=== PATIENT | male | born 1960 | race Caucasian/White ===

== ENCOUNTER 2024-08-15 15:51 | Emergency (ER) | payer OTHER, SELFPAY ==
[2024-08-15 16:00] VITALS: BP 141/100
[2024-08-15 16:30] LABS: Urine Albumin 3+ (Neg - Trace); Urine Bilirubin 1+ (Negative); Urine Character Clear (Clear); Urine Color Yellow; Urine Glucose 1+ (Negative); Urine Ketone 2+ (Negative); Urine Leukocyte 1+ (Negative); Urine Nitrite Negative (Negative); Urine Occult Blood 4+ (Negative); Urine Urobilinogen 1+ (Neg - 1+)
[2024-08-15 16:35] LABS: % Basophils 0.2 % (0-2); % Eosinophils 0.1 % (0-6); % Immature Granulocytes 0.5 % (0-0.5); % Lymphocytes 11.3 % (20.5-51.1); % Monocytes 18.4 % (1.7-9.3); % Neutrophils 69.5 % (42.2-75.2); Absolute Immature Granulocytes 0.1 10^3/uL (0-0.05); Absolute Lymphocytes 1.2 10^3/uL (1.2-3.4); Absolute Monocytes 1.9 10^3/uL (0.1-0.6); Absolute Neutrophils 7.2 10^3/uL (1.4-6.5); Hematocrit 49.1 % (39.0-52.0); Hemoglobin 16.4 g/dL (13.0-18.0); Mean Corp Hgb Conc. 33.4 g/dL (33.0-37.0); Mean Corpuscular Hgb 29.1 pg (27.0-31.0); Mean Corpuscular Volume 87.1 fL (80.0-94.0); Mean Platelet Volume 10.3 fL (7.4-10.4); Nucleated Red Blood Cells % 0 % (-); Platelet Count 193 10^3/uL (130-400); Red Blood Cell Count 5.64 10^6/uL (4.70-6.10); Red Cell Dist. Width 13.4 % (11.5-14.5); White Blood Cell Count 10.3 10^3/uL (4.8-10.8)
[2024-08-15 16:42] LABS: COVID-19 Antigen Negative (Negative)
[2024-08-15 16:43] LABS: ALT (SGPT) 40 U/L (0-50); AST (SGOT) 44 U/L (17-59); Albumin 4.2 g/dl (3.5-5.0); Alkaline Phosphatase 72 U/L (38-126); Blood Urea Nitrogen 21 mg/dl (9-20); Calcium 8.8 mg/dl (8.4-10.2); Carbon Dioxide 29 mmol/L (22-30); Chloride 99 mmol/L (98-107); Glucose 271 mg/dl (70-99); Potassium 3.5 mmol/L (3.5-5.1); Sodium 137 mmol/L (135-145); Total Protein 7.4 g/dl (6.3-8.2); Urine Mucus Moderate; Urine Squamous Cell 0-2 /LPF (Few); eGFR > 60.00
[2024-08-15 16:44] LABS: Urine Bacteria Many (Negative); Urine Red Blood Cell 50-60 /HPF (0-2)
--- NOTE | 2024-08-15 17:48 | ED.GENMED ---
History of Present Illness
General
Chief Complaint: Urinary Symptoms
Time Seen by Provider: 08/15/24 17:47
History of Present Illness
History of Present Illness:
REVIEW OF OLD RECORDS
- I reviewed records, the patient had a colonoscopy in 2022, the patient has a history of high blood pressure, hyperlipidemia, and IDDM. He was sent here by PMD.
CHIEF COMPLAINT(S)
Worsening flu-like symptoms over the last 48 hours, accompanied by blood in urine.
HISTORY OF PRESENT ILLNESS
The patient is a 63-year-old male presenting with one week of flu-like symptoms which have worsened over the past 48 hours. The symptoms include fatigue, body aches, chills, stuffy ears, and discomfort over the lymph node area. The fatigue became
more pronounced over the last few days. The patient reports noticing blood in the urine, but denies any abdominal or back pain and has no symptoms suggestive of a kidney stone. The patient also experienced nose tenderness on the right side. No
difficulty breathing was noted, and the throat was not sore.
The patients blood work currently looks reassuring, with no overwhelming signs of infection. A prostate examination was normal, with no significant tenderness indicated. Initial urine analysis showed higher blood presence without significant white
blood cell elevation. The patient has a known history of type one diabetes, with recent challenges in maintaining glucose control over the last 48 hours, likely secondary to this illness.
EXTERNAL RECORDS REVIEWED
Per the records reviewed, the patient has type one diabetes, and recent blood sugar levels were noted to be around 200. There was mention of a borderline flagged urinalysis.
CHRONIC MEDICAL CONDITIONS SIGNIFICANTLY AFFECTING CARE
Type one diabetes, encountering difficulty with glycemic control recently associated with the current illness.
SOCIAL HISTORY
The patient reports his spouse experienced a similar viral illness with symptoms of coughing and sneezing, which the patient may have contracted.
REVIEW OF SYSTEMS
- General: Fatigue, body aches, and chills.
- Head and Ears: Stuffy ears, tenderness on the right side of the nose, no throat soreness or difficulty breathing.
- Gastrointestinal and Renal: Blood noticed in urine, no abdominal or back pain.
- Endocrine: Type one diabetes, glucose control issues.
- Respiratory: No cough, no significant respiratory symptoms.
PHYSICAL EXAM
- Head and Neck: Slightly swollen lymph nodes on the right side/anterior cervical lymphadenopathy.
- Respiratory and Oral: No difficulty breathing, no pus visible in throat, slightly prominent uvula but widely patent oropharynx.
- General: Well appearing in no distress
- HEENT: Moist oral mucosa
- Cardiovascular: No murmurs, borderline tachycardic heart rate, regular rhythm, No chest wall tenderness
- Pulmonary: No respiratory distress, breath sounds are clear and equal
- Abdomen: Soft with no peritoneal signs, no tenderness, no CVA tenderness
- Neurologic: Excellent strength all extremities, no coordination deficits
- Psychiatric: Appropriate mental status, normal insight and judgement
- Extremities: Nontender, no edema, moves all extremities equally
- Skin: No rash, no lesions
PROBLEM LIST
Acute Problems:
- Flu-like symptoms with fatigue and body aches.
- Blood in urine without other urinary tract infection indicators.
Chronic Problems:
- Type one diabetes.
PLAN
1. Administer a dose of Ceftriaxone in the emergency department.
2. Perform blood cultures and lactic acid tests to rule out serious bacterial infection.
3. Refer the patient to a urologist for further evaluation of hematuria.
4. Patient encouraged to return if symptoms worsen.
DIFFERENTIAL DIAGNOSIS
The Differential Diagnosis includes, in no particular order and is not limited to:
1. Viral infection (e.g., influenza)
2. Urinary tract infection
3. Kidney stone
4. Glomerulonephritis
5. Prostatitis
6. Pyelonephritis
7. Type one diabetes complications
8. Upper respiratory tract infection
9. Viral lymphadenitis
10. Hematuria of unknown origin
RADIOLOGY
- No clear indication but I did consider CT of the abdomen pelvis given the hematuria however the patient has no abdominal pain nor any back pain
EKG
- Not indicated
LABS
- White count and hemoglobin are normal, chemistries unremarkable however the glucose was 271, bicarb is 29, urinalysis shows 50-60 red cells but only 6-10 white cells per high-powered field, 1+ leukocyte esterase in the urine appeared clear and
yellow, COVID-negative, lactic acid normal
UPDATE
-08/15/24 - 19:26
Patients lactic acid level is normal, indicating no severe systemic infection such as sepsis. Patient reported feeling better after receiving IV fluids, potentially due to dehydration from lack of intake during a prolonged sleep period of 24 hours.
Considering the patients diabetes and the possibility of a urinary tract infection, initiation of Keflex (cephalexin) is proposed. A referral to a urologist is recommended. Patient is stable for discharge, with instructions to return if symptoms
worsen.
Phy Exam
Physical Exam
Physical Exam:
See HPI
Course
Orders/Labs/Results
Orders:
Orders
08/15/24 16:11
COVID-19 Antigen Urgent
Source: Nasal Swab
Complete Blood Count/With Diff Urgent
Comprehensive Metabolic Panel Urgent
Urinalysis Reflex To Culture Urgent
Date Specimen was Collected: 08/15/24
Time Specimen was Collected: 16:03
Urine Microscopic Reflex Cult Urgent
Influenza A+B Rapid Molecular Urgent
[facility] Source: Nasal Swab
Specimen Description:
Date Specimen was Collected: 08/15/24
Time Specimen was Collected: 16:03
Urine Culture Urgent
[facility] Source: U
Specimen Description:
Date Specimen was Collected: 08/15/24
Time Specimen was Collected: 16:03
08/15/24 18:03
0.9% Sodium Chloride 1000 ml [Nss] 1,000 ml IV BOLUS
Acetaminophen [Tylenol] 1,000 mg PO NOW STA
08/15/24 18:18
Lactic Acid Q4H
Comment: CANCEL 2nd LACTIC ACID IF 1st LACTIC ACID IS LESS THAN 2
Blood Culture Q30M
[facility] Source: Blood/Venous
Specimen Description:
Blood Culture Q30M
[facility] Source: Blood/Venous
Specimen Description:
08/15/24 19:26
Cephalexin Monohydrate [Keflex] 500 mg PO NOW STA
08/15/24 22:15
Lactic Acid Q4H
Comment: CANCEL 2nd LACTIC ACID IF 1st LACTIC ACID IS LESS THAN 2
Abnormal Lab Results
08/15/24
16:11
Abs Immat Gran (auto) 0.1 H 10^3/uL
(0-0.05)
Absolute Neuts (auto) 7.2 H 10^3/uL
(1.4-6.5)
Absolute Monos (auto) 1.9 H 10^3/uL
(0.1-0.6)
Lymphocytes % 11.3 L %
(20.5-51.1)
Monocytes % 18.4 H %
(1.7-9.3)
BUN 21 H mg/dl
(9-20)
Glucose 271 H mg/dl
(70-99)
Urine Ketones 2+ A
(Negative)
Ur Occult Blood Reflex 4+ A
(Negative)
Urine Bilirubin 1+ A
(Negative)
Leukocyte Esterase Rfl 1+ A
(Negative)
Urine RBC 50-60 A /HPF
(0-2)
Urine Bacteria (Reflex) Many A
(Negative)
Urine Glucose 1+ A
(Negative)
Urine Albumin (Reflex) 3+ A
(Neg - Trace)
08/15/24 16:11
08/15/24 16:11
Vital Signs
Initial and Last Documented VS:
Initial Vital Signs
Temp Pulse Resp BP Pulse Ox
37.8 C 105 18 141/100 99
08/15/24 16:00 08/15/24 16:00 08/15/24 16:00 08/15/24 16:00 08/15/24 16:00
Last Documented Vital Signs
Temp Pulse Resp BP Pulse Ox
37.3 C 81 18 166/97 97
08/15/24 19:26 08/15/24 19:25 08/15/24 19:25 08/15/24 18:55 08/15/24 19:25
*Critical Care Note
Total Time (30-74mins, 75-104mins- exclusive of procedures): Not Applicable
ED Attending Note
-
Portions of this chart may have been created with voice recognition software.� Occasional wrong word or��sound alike� substitutions may have occurred due to the inherent limitations of voice recognition software.
Discharge Plan
Departure
Patient Disposition: Home (Routine Discharge)
Date of Disposition: 08/15/24
Time of Disposition: 19:27
Patient with high blood pressure during this ER visit?: Yes
Discharge Problem:
Hematuria
Instructions: Blood in the urine (hematuria) in adults, Fever in adults - ED discharge instructions, BLOOD PRESSURE
Prescriptions:
New
cephalexin 500 mg tablet
500 mg PO TID Qty: 21 0RF
Referrals:
Clinton Gustafson Jr., MD [Active, Urology]
Bryson Branch CRNP [Family Provider, Internal Medicine]
Activity Restrictions/Additional Instructions:
Your white blood cell count and lactic acid levels are both normal. Your blood sugar was high at 271. Since your temperature and heart rate were borderline elevated, a lactic acid level was obtained and was normal. The urinalysis shows blood in
the urine as well as some ketones and we gave you IV fluids. I have given you the contact information for a local urologist regarding the blood in the urine. Return here if worse or other concerns. Blood cultures pending.
Interventions
Interventions:
*Risk Screen - Suicide Last Done: 08/15/24 16:00
*General Assessment Last Done: 08/15/24 18:53
*Neglect/Abuse Screening Last Done: 08/15/24 16:00
*ED- Fall Risk Assessment Last Done: 08/15/24 18:53
ED-Male Genitourinary Assessment Last Done: 08/15/24 18:52
Discharge Date and Time
Print Language: WELSH
[2024-08-15] MEDS: NSS 1000 IV (18:12)
[2024-08-15] MEDS: TYLENOL 1000 MG PO (18:12)
[2024-08-15 18:40] LABS: Lactic Acid 0.8 mmol/L (0.7-2.0)
[2024-08-15 18:55] VITALS: BP 166/97
[2024-08-15] MEDS: KEFLEX 500 MG PO (19:42)
== END 2024-08-15 19:46 | disposition home or self-care (01) ==
LOC: EMR 15:51
PROVIDERS: EMERGENCY PHYSICIAN Emergency Medicine; FAMILY PHYSICIAN Registered Nurse
DX: R31.9 Hematuria, unspecified (principal); E11.9 Type 2 diabetes mellitus without complications; E78.00 Pure hypercholesterolemia, unspecified
CPT/HCPCS: 99283; 96360; 80053; 81003; 81015; 83605; 85025; 87040; 87086; 87502; 87811

== ENCOUNTER → 2024-09-01 06:41 | Outpatient (REF) | payer OTHER, SELFPAY | LOC: RAD 06:41 | PROVIDERS: ATTENDING PHYSICIAN Registered Nurse | DX: R31.0 Gross hematuria (principal) | CPT/HCPCS: 74178; Q9967 ==